=== PATIENT | male | born 1960 | race Caucasian/White ===

== ENCOUNTER 2019-04-05 11:08 | Day surgery (SDC) | payer MEDICARE, OTHER ==
[~2019-04-05] VITALS: Ht 180.3 cm; Wt 102.7 kg
[2019-04-05 11:34] LABS: HEMATOCRIT 46.9 % (42.0-54.0); HEMOGLOBIN 16.2 g/dL (13.5-17.5); MCH 29.7 pg (26.0-34.0); MCHC 34.5 g/dL (31.0-37.0); MCV 85.9 fL (80.0-100.0); MEAN PLATELET VOLUME 9.5 fL (7.4-10.4); RBC 5.46 10x6/uL (4.20-6.10); RDW 13.8 % (11.5-14.5); WBC 8.2 10x3/uL (4.8-10.8)
[2019-04-05 11:47] LABS: CALC OSMOLALITY 277 mosm/kg (275-300); CALCIUM 8.6 mg/dL (8.5-10.1); CARBON DIOXIDE 27.9 mmol/L (21.0-32.0); CHLORIDE - SERUM 104 mmol/L (98-107); GLUCOSE 107 mg/dL (74-106); SODIUM 140 mmol/L (136-145); UREA NITROGEN 10 mg/dL (7-18); eGFR NON AFRICAN AMERICAN 82 mL/min (90-120)
[2019-04-05] MEDS ORDERED: GLUCOPHAGE1000 MG PO (12:06)
[2019-04-05] MEDS ORDERED: JARDIANCE25 MG PO (12:07)
[2019-04-05] MEDS ORDERED: NEURONTIN600 MG PO (12:07)
[2019-04-05] MEDS ORDERED: GLIMEPIRIDE1 MG PO (12:08)
[2019-04-05] MEDS ORDERED: PLAVIX75 MG PO (12:08)
[2019-04-05] MEDS ORDERED: LISINOPRIL2.5 MG PO (12:09)
[2019-04-05 12:10] LABS: APTT 26.1 SECONDS (22.8-39.4); INR 1.01 (0.85-1.17); PROTIME 12.8 SECONDS (11.6-15.0)
[2019-04-05] MEDS ORDERED: LIPITOR40 MG PO (12:10)
[2019-04-05] MEDS ORDERED: LANTUS SOL100 UNIT/1 SC (12:10)
[2019-04-05] MEDS ORDERED: BAYER CHEWABLE81 MG PO (12:11)
[2019-04-05 12:19] VITALS: BP 120/68; Ht 180.3 cm; Wt 102.7 kg
--- NOTE | 2019-04-05 14:35 | NUR ---
1430 [place] DIET SERVED. PT. HAS VOIDED AND PASSED FLATUS. IV DC'D WITH CATH INTACT. PT. DRESSED HISSELF. AT SIDE.
--- NOTE | 2019-04-05 19:07 | OP ---
PATIENT NAME: MISSAEL ASHER MEDICAL RECORD: [id number] :62 LOCATION:D.[facility] ADMISSION DATE: SURGEON: FIORELLA MORFIN DO DATE OF OPERATION: 04/05/2019 PROCEDURE: Colonoscopy with polypectomy. INDICATION FOR PROCEDURE: Personal history of polyps. SCOPE: Olympus video pediatric colonoscope. MEDICATIONS: Propofol 1300 mg IV per anesthesia. WITHDRAWAL TIME: 7 minutes. ESTIMATED BLOOD LOSS: Minimal. COMPLICATIONS: None. FINDINGS: Informed consent was given. The patient was made comfortable with the above medication. After reaching an adequate level of sedation by slow IV push, the patient was placed on his left side. A digital rectal examination was performed and was normal. The endoscope was then advanced under direct visualization through the rectum to the cecum, confirmed by the presence of the appendiceal orifice and the ileocecal valve. The endoscope was slowly withdrawn and mucosa was carefully examined. The prep quality was good. There were multiple polyps visualized on today's examination. In the rectum alone, there were 9 separate polyps. They ranged in size from 3-8 mm in size. They were benign appearing and sessile and some were flat. They were removed using a combination of hot forceps and a hot snare. In the sigmoid colon, there were 3 separate polyps, which were benign appearing, sessile, and flat and mixed type. They ranged in size from 5 mm to 1 cm. They were all removed using hot snare. Also, in the sigmoid colon, there was a large flat polyp, which measured approximately 1 cm in size, which had a slightly hemorrhagic appearance. An attempt was made at endoscopic mucosal resection, but the polyp did not lift adequately. Once a stiff snare was used to try to remove the polyp, it would not capture the polyp itself, so hot forceps was used to piecemeal resect this site out and to cauterize the remaining tissue. There was a small amount of bleeding that was not stopping sufficiently on its own after removal of this polyp, so a single endoclip was placed for hemostasis measure successfully. In the descending colon, there was another mixed-type polyp, which measured approximately 5 mm in size. It was removed using a hot snare in one piece and retrieved. Retroflexion was performed in the rectum with grade I internal hemorrhoids without bleeding. The endoscope was withdrawn from the patient. The patient tolerated the procedure well and there were no complications. IMPRESSION: 1. Multiple polyps as described above, removed using a combination of endoscopic mucosal resection technique, hot snare, and hot forceps. 2. Grade I internal hemorrhoids. PLAN AND RECOMMENDATIONS: 1. Discharge home when recovery parameters are met. 2. Follow up biopsy specimen results. 3. High-fiber diet. OPERATIVE REPORT [id number] MISSAEL ASHER 4. Continue current diet and medications. 5. Recommend repeat colonoscopy in approximately 6 months for further removal of polyps and revisit sites where polyps have been removed at this time. TRANSINT:[id number] Voice Confirmation ID: [id number] DOCUMENT ID: [id number] FIORELLA MORFIN DO at 1907 CC: [id number] DICTATION DATE: 04/05/19 1410 [employer] SUPERVISOR: 04/05/19 1459 [facility] 04/05/19 [facility] [address] [place] [address]
== END 2019-04-05 14:50 | disposition home or self-care (01) ==
LOC: D.OPS 11:08
PROVIDERS: ATTEND Internal Medicine Gastroenterology
DX: K63.5 Polyp of colon (principal); Z86.010 Personal history of colon polyps

== ENCOUNTER 2019-10-25 06:14 | Day surgery (SDC) | payer MEDICARE, OTHER ==
[~2019-10-25] VITALS: Ht 180.3 cm; Wt 106.8 kg
[~2019-10-25 06:14] MED LIST: BAYER CHEWABLE81 MG PO; GLIMEPIRIDE1 MG PO; GLUCOPHAGE1000 MG PO; JARDIANCE25 MG PO; LANTUS SOL100 UNIT/1 SC; LIPITOR40 MG PO; LISINOPRIL2.5 MG PO; NEURONTIN600 MG PO; PLAVIX75 MG PO
[2019-10-25 06:42] LABS: MCH 30.1 pg (26.0-34.0); MCHC 34.8 g/dL (31.0-37.0); MCV 86.6 fL (80.0-100.0); RBC 5.31 10x6/uL (4.20-6.10); RDW 13.5 % (11.5-14.5); WBC 7.9 10x3/uL (4.8-10.8)
[2019-10-25 06:48] LABS: CALC OSMOLALITY 279 mosm/kg (275-300); CALCIUM 8.5 mg/dL (8.5-10.1); CARBON DIOXIDE 25.4 mmol/L (21.0-32.0); CHLORIDE - SERUM 105 mmol/L (98-107); CREATININE - SERUM 0.9 mg/dL (0.6-1.3); GLUCOSE 151 mg/dL (74-106); POTASSIUM - SERUM 4.2 mmol/L (3.5-5.1); SODIUM 139 mmol/L (136-145); UREA NITROGEN 10 mg/dL (7-18); eGFR NON AFRICAN AMERICAN > 90 mL/min (90-120)
[2019-10-25] MEDS ORDERED: COREG6.25 MG PO (07:07)
[2019-10-25 07:12] VITALS: BP 129/69; Ht 180.3 cm; Wt 106.8 kg
--- NOTE | 2019-10-25 09:39 | NUR ---
0917 IV DC'D. CATHETER TIP INTACT. NO BLEEDING AT SITE. BANDAID APPLIED. PT VOICES UNDERSTANDING THAT HE CAN RESUME PLAVIX AND ASA TOMORROW. PT AND HIS VOICE UNDERSTANDING OF DISCHARGE INSTRUCTIONS
--- NOTE | 2019-10-25 16:48 | OP ---
PATIENT NAME: MISSAEL ASHER MEDICAL RECORD: [id number] :62 LOCATION:D.[facility] ADMISSION DATE: SURGEON: FIORELLA MORFIN DO DATE OF OPERATION: 10/25/2019 PROCEDURE: Colonoscopy with polypectomy. INDICATIONS FOR PROCEDURE: History of colon polyps. This is a 6-month recall. SCOPE: Olympus video pediatric colonoscope. MEDICATIONS: Propofol 630 mg IV per anesthesia. WITHDRAWAL TIME: 21 minutes. ESTIMATED BLOOD LOSS: Minimal. COMPLICATIONS: None. FINDINGS: Informed consent was given. The patient was made comfortable with the above medication. After reaching an adequate level of sedation by slow IV push, the patient was placed on his left side. A digital rectal examination was performed and was normal. The endoscope was then advanced under direct visualization through the rectum to the cecum, confirmed by the presence of the appendiceal orifice and ileocecal valve. The endoscope was slowly withdrawn and mucosa was carefully examined. The prep quality is good. There were 7 polyps total removed on today's examination. They were all benign appearing and sessile and ranged in size from 4 mm to 1 cm. Four were removed from the sigmoid colon with a hot snare, one was removed from the transverse colon with a hot snare, one was removed from the cecum with a hot snare, and one was removed from the descending colon with a hot snare. Retroflexion was performed in the rectum with a normal-appearing rectal wall. The endoscope was withdrawn from the patient. The patient tolerated the procedure well, and there were no complications. IMPRESSION: 1. Seven polyps as described above, removed using a hot snare. 2. Otherwise normal colonoscopy. PLAN AND RECOMMENDATIONS: 1. Discharge home when recovery parameters are met. 2. Follow up biopsy specimen results. 3. Continue current diet. 4. Continue current medications. 5. Recall colonoscopy will be dependent on results of polyps removed today. Currently, I am leaning towards repeating in 2 years. TRANSINT:[id number] Voice Confirmation ID: [id number] DOCUMENT ID: [id number] OPERATIVE REPORT [id number] MISSAEL ASHER FIORELLA MORFIN DO at 1648 CC: [id number] DICTATION DATE: 10/25/19 0838 OPERATIONS INSPECTOR: 10/25/19 1014 [facility] 10/25/19 [facility] [address] [place] [address]
== END 2019-10-25 09:23 | disposition home or self-care (01) ==
LOC: D.OPS 06:14
PROVIDERS: Anesthesiology; ATTEND Internal Medicine Gastroenterology
DX: K63.5 Polyp of colon (principal)

== ENCOUNTER → 2020-02-24 12:16 | Outpatient (CLI) | payer MEDICARE, OTHER ==
[2019-10-25 07:12] VITALS: BMI 32.8
[~2020-02-24 12:16] MED LIST changes: +COREG6.25 MG PO; +NUFOLA
== END | disposition home or self-care (01) ==
LOC: D.LAB 12:16
PROVIDERS: ATTEND Internal Medicine Gastroenterology
DX: Z11.59 Encounter for screening for other viral diseases (principal)

== ENCOUNTER 2020-02-28 07:44 | Day surgery (SDC) | payer MEDICARE, OTHER ==
[~2020-02-28] VITALS: Ht 180.3 cm; Wt 107.3 kg
--- NOTE | ~2020-02-28 | OP ---
PATIENT NAME: MISSAEL ASHER MEDICAL RECORD: [id number] :62 LOCATION:D.[facility] ADMISSION DATE: SURGEON: FIORELLA MORFIN DO DATE OF OPERATION: 02/28/2020 PROCEDURE: Colonoscopy with polypectomy. INDICATIONS FOR PROCEDURE: Personal history of polyps. This is a 3-month recall procedure due to a past colonoscopy showing high-grade dysplasia and a polyp removed. SCOPE: Olympus video pediatric colonoscope. MEDICATIONS: Propofol 700 mg IV per anesthesia. WITHDRAWAL TIME: 19 minutes. ESTIMATED BLOOD LOSS: Minimal. COMPLICATIONS: None. FINDINGS: Informed consent was given. The patient was made comfortable with the above medication. After reaching an adequate level of sedation by slow IV push, the patient was placed on his left side. A digital rectal examination was performed and was normal. The endoscope was then advanced under direct visualization through the rectum to the cecum, confirmed by the presence of the appendiceal orifice and ileocecal valve. The endoscope was slowly withdrawn and mucosa was carefully examined. The prep quality was fair. There were 4 polyps visualized on today's examination. Two were located in the ascending colon. They were benign appearing and mixed type between sessile and flat. A sessile polyp measured approximately 7 mm in diameter. It was removed using a hot snare. A flat polyp measured approximately 8 mm in diameter. It was removed using a hot snare. In the transverse colon, there were two separate polyps. One was a hyperplastic appearing polyp that measured approximately 7 mm in diameter that was removed using a hot snare. Another was a flat large polyp, which measured approximately 1.5-2 cm in size. It was removed using EMR technique injecting normal saline for a pillow followed by piecemeal hot snare polypectomy. Retroflexion was performed in the rectum with a normal appearing rectal wall. The endoscope was withdrawn from the patient. The patient tolerated the procedure well and there were no complications. IMPRESSION: 1. Four polyps as described above, removed using a combination of endoscopic mucosal resection technique and hot snare polypectomy. 2. Otherwise, normal colonoscopy. PLAN AND RECOMMENDATIONS: 1. Discharge home when recovery parameters are met. 2. Follow up biopsy specimen results. 3. High fiber diet. 4. Continue current medications. 5. I anticipate a recall colonoscopy in 1 year. TRANSINT:[id number] Voice Confirmation ID: [id number] DOCUMENT ID: [id number] OPERATIVE REPORT [id number] MISSAEL ASHER NATHAN A DO CC: [id number] DICTATION DATE: 02/28/20 1049 CAMP ADVISOR: 02/28/20 2204 [facility] [place] 02/28/20 [place] [id number] [place] [id number]
[~2020-02-28 07:44] MED LIST changes: -NUFOLA
[2020-02-28 08:08] LABS: HEMATOCRIT 46.8 % (42.0-54.0); HEMOGLOBIN 15.4 g/dL (13.5-17.5); MCH 29.3 pg (26.0-34.0); MCHC 32.9 g/dL (31.0-37.0); MEAN PLATELET VOLUME 9.6 fL (7.4-10.4); RBC 5.26 10x6/uL (4.20-6.10); RDW 13.6 % (11.5-14.5); WBC 7.6 10x3/uL (4.8-10.8)
[2020-02-28 08:12] LABS: ANION GAP 9.8 mmol/L (8-16); CALCIUM 8.8 mg/dL (8.5-10.1); CARBON DIOXIDE 28.4 mmol/L (21.0-32.0); CREATININE - SERUM 1.1 mg/dL (0.6-1.3); POTASSIUM - SERUM 4.2 mmol/L (3.5-5.1)
[2020-02-28] MEDS ORDERED: NUFOLA (08:12)
[2020-02-28 08:22] VITALS: Ht 180.3 cm; Wt 107.3 kg
--- NOTE | 2020-02-28 11:43 | NUR ---
1115 IV DC'D. CATHETER TIP INTACT. NO BLEEDING AT SITE. BANDAID APPLIED. REVIEWED DISCHARGE INSTRUCTIONS WITH PT AND HIS . QUESTIONS ANSWERED. BOTH VOICE UNDERSTANDING OF INSTRUCTIONS.
== END 2020-02-28 11:35 | disposition home or self-care (01) ==
LOC: D.OPS 07:44
PROVIDERS: Anesthesiology; ATTEND Internal Medicine Gastroenterology
DX: Z86.010 Personal history of colon polyps (principal); K63.5 Polyp of colon; E11.40 Type 2 diabetes mellitus with diabetic neuropathy, unspecified; Z79.84 Long term (current) use of oral hypoglycemic drugs